=== PATIENT | male | born 1950 | race Caucasian/White ===

== ENCOUNTER → 2017-03-28 | Outpatient (CLI) | payer MEDICARE, OTHER ==
[2017-03-28 15:52] LABS: ASPARTATE AMINO TRANSFERASE 33 U/L (15-37); BLOOD UREA NITROGEN 28 mg/dL (7-18)
== END | disposition home or self-care (01) ==
LOC: CFH 14:19
PROVIDERS: ATTEND Family Medicine
DX: E88.01 Alpha-1-antitrypsin deficiency (principal); M47.894 Other spondylosis, thoracic region
CPT/HCPCS: 36415; 71020; 80053; 82103; 82104

== ENCOUNTER 2017-07-29 20:53 | Emergency (ER) | payer MEDICARE, OTHER ==
[~2017-07-29] VITALS: Ht 172.7 cm; Wt 88.6 kg
[2017-07-29] MEDS ORDERED: LOSA1TAB25 PO (21:47)
[2017-07-29] MEDS ORDERED: LEVO25TA4 PO (21:47)
[2017-07-29] MEDS ORDERED: OMEP-110 PO (21:47)
[2017-07-29] MEDS ORDERED: METO25TA35 PO (21:47)
[2017-07-29] MEDS ORDERED: ASPI-496 PO (21:47)
[2017-07-29] MEDS ORDERED: SIMV10TA3 PO (21:47)
[2017-07-29 22:00] LABS: HEMATOCRIT 43.5 % (39.2-51.8); HEMOGLOBIN 14.6 g/dL (13.7-18.0); WHITE BLOOD COUNT 5.7 x10^3/uL (3.4-10)
[2017-07-29 22:11] LABS: BLOOD UREA NITROGEN 25 mg/dL (7-18)
[2017-07-29 22:16] LABS: ASPARTATE AMINO TRANSFERASE 28 U/L (15-37)
[2017-07-29 22:18] LABS: IS PT STATUS REG ER OR PRE ER? YES
[2017-07-29 22:46] VITALS: BP 128/80
== END 2017-07-29 22:48 | disposition home or self-care (01) ==
LOC: ED 22:30
DX: R55 Syncope and collapse (principal); S00.81XA Abrasion of other part of head, initial encounter; S00.31XA Abrasion of nose, initial encounter; N18.9 Chronic kidney disease, unspecified; I12.9 Hypertensive chronic kidney disease with stage 1 through stage 4 chronic kidney disease, or unspecified chronic kidney disease; X58.XXXA Exposure to other specified factors, initial encounter; Y93.89 Activity, other specified; Y92.89 Other specified places as the place of occurrence of the external cause; Y99.9 Unspecified external cause status
CPT/HCPCS: 36415; 70450; 72125; 80053; 84484; 85025; 85379; 85610; 85730; 93005; 99285

== ENCOUNTER → 2017-08-27 | Outpatient (CLI) | payer MEDICARE, OTHER ==
[~2017-08-27] MED LIST: ASPI-496 PO; LEVO25TA4 PO; LOSA1TAB25 PO; METO25TA35 PO; OMEP-110 PO; SIMV10TA3 PO
== END | disposition home or self-care (01) ==
LOC: CFH 08:31
PROVIDERS: ATTEND Internal Medicine Pulmonary Disease
DX: R05 Cough (principal); E88.01 Alpha-1-antitrypsin deficiency
CPT/HCPCS: 71250; 76705

== ENCOUNTER → 2019-10-21 | Outpatient (CLI) | payer MEDICARE, OTHER ==
[~2019-10-21] MED LIST changes: +SIMV10TA18 PO; -SIMV10TA3 PO
== END | disposition home or self-care (01) ==
LOC: CFH 13:17
PROVIDERS: ATTEND Internal Medicine
DX: J47.9 Bronchiectasis, uncomplicated (principal); J84.9 Interstitial pulmonary disease, unspecified
CPT/HCPCS: 71250